=== PATIENT | female | born 1995 | race Caucasian/White ===

== ENCOUNTER 2017-12-24 17:56 | Emergency (ER) | payer OTHER, SELFPAY ==
[2017-12-24 18:12] VITALS: BP 108/78; PULSE 88; RESP 18; TEMP 36.8; O2SAT 100; BMI 53.5
--- NOTE | 2017-12-24 18:38 | HMH.EDUTC ---
[facility] [place] Disposition Clinical Impression: Sinusitis Qualifiers: Sinusitis location: other Chronicity: unspecified Qualified Code(s): J32.9 - Chronic sinusitis, unspecified Disposition: Home, Self-Care Condition on Discharge: Good Instructions: Sinusitis, Sinus Headache, DI for Sinusitis Additional Instructions: Start antibiotic. Sinus infections may take 2-3 days to notice much improvement so be sure to use conservative measures as discussed for symptoms Flonase 2 spray in each nostril daily to help with nasal congestion, sinus an ear pressure/inflammation Lots of Fluids Sleep elevated Humidifer/vaporizer Prescriptions: Brompheniramine/Pseudoephed/Dm [Bromfed DM Cough Syrup 5mL] 10 ml PO Q6HP PRN #300 ml PRN Reason: Cough Doxycycline Monohydrate 100 mg PO BID #14 cap Fluticasone Propionate [Flonase 50mcg nasal spray 16gm] 2 spr NS DAILY #1 bottle Time of Disposition: 18:57 Medical Decision Making - Medical Records Medical records reviewed: Yes: I reviewed the patient's medical records. Vital Signs: 12/24/17 18:12 Temperature 98.3 F Temperature Source Temporal Artery Scan Pulse Rate [Right] 88 Respiratory Rate 18 Blood Pressure [Right Arm] 108/78 Blood Pressure Mean [Right Arm] 88 Blood Pressure Source [Right Arm] Automatic Cuff Blood Pressure Position [Right Arm] Sitting 02 Sat by Pulse Oximetry 100 Oxygen Delivery Method Room Air - Go Inquiry Pt receiving controlled substance: No Go was queried for this patient: No [facility] [place] HPI - General Stated complaint: head congestion Mode of Arrival: Ambulatory Source of Information: Patient Limitations: No Limitations Description of Symptoms (Recalled from Triage Doc. by RN): SINUS PROBLEMS X2 WKS HEENT Symptoms (Recalled from RN notes): Yes Resp Symptoms (Recalled from RN notes): No Skin Symptoms (Recalled from RN notes): No MS Symptoms (Recalled from RN notes): No Functional Status (Recalled from RN notes): N - History of Present Illness Provider Complaint: Patient state that she has been having sinus pain and pressure for about 2 weeks now State that it got better now it has returned and hurting worse than it was State that this morning she had a fever This evening she began to feel pressure in her teeth and felt tender under her eyes States that she has been having thick greenish brown drainage from nose - Related Data Home Medications Medication Instructions Recorded Confirmed Levothyroxine Sodium 112 mcg PO DAILY 12/24/17 12/24/17 [Levothyroxine 112mcg (0.112mg) Tab] Metformin HCl [Metformin 500mg 700 mg PO DAILY 12/24/17 12/24/17 Tablet] Previous Rx's Medication Instructions Recorded Brompheniramine/Pseudoephed/Dm 10 ml PO Q6HP PRN #300 ml 12/24/17 [Bromfed DM Cough Syrup 5mL] Doxycycline Monohydrate 100 mg PO BID #14 cap 12/24/17 Fluticasone Propionate [Flonase 2 spr NS DAILY #1 bottle 12/24/17 50mcg nasal spray 16gm] Allergies Allergy/AdvReac Type Severity Reaction Status Date / Time amoxicillin [From Augmentin] Allergy Verified 12/24/17 18:16 cefaclor [From Ceclor] Allergy Verified 12/24/17 18:16 clavulanic acid Allergy Verified 12/24/17 18:16 [From Augmentin] - Worker's Comp Is this a Worker's Comp case?: No H History I have reviewed the patient's past medical history: Yes Laterality Cases: Bilateral: Tonsillectomy - Social History Alcohol Intake: never - Psychiatric History Expresses thoughts of harming self/others: None Suicide Plan Description: No Plan ROS Obtained: Yes All systems reviewed & no additional complaints - ENT Ears, Nose, Mouth, and Throat: Reports sinus pain, Reports sinus pressure - Cardiovascular Cardiovascular: Denies chest pain Physical Exam - General General appearance: alert, in no apparent distress - Expanded ENT Exam Nose exam: Present: sinus tenderness, other (Tenderness noted under eyes in maxillary sinuses) - Respiratory Respiratory exam:
--- NOTE | 2017-12-24 18:51 | ED_ITS ---
[facility] [place] Clinical Impression: Sinusitis Qualifiers: Sinusitis location: other Chronicity: unspecified Qualified Code(s): J32.9 - Chronic sinusitis, unspecified Disposition: Home, Self-Care Condition on Discharge: Good Instructions: Sinusitis, Sinus Headache, DI for Sinusitis Additional Instructions: Start antibiotic. Sinus infections may take 2-3 days to notice much improvement so be sure to use conservative measures as discussed for symptoms Flonase 2 spray in each nostril daily to help with nasal congestion, sinus an ear pressure/inflammation Lots of Fluids Sleep elevated Humidifer/vaporizer Prescriptions: Brompheniramine/Pseudoephed/Dm [Bromfed DM Cough Syrup 5mL] 10 ml PO Q6HP PRN # 300 ml PRN Reason: Cough Doxycycline Monohydrate 100 mg PO BID #14 cap Fluticasone Propionate [Flonase 50mcg nasal spray 16gm] 2 spr NS DAILY #1 bottle Time of Disposition: 18:57 Medical Decision Making - Medical Records Medical records reviewed: Yes: I reviewed the patient's medical records. Vital Signs: 12/24/17 18:12 Temperature 98.3 F Temperature Source Temporal Artery Scan Pulse Rate [Right] 88 Respiratory Rate 18 Blood Pressure [Right Arm] 108/78 Blood Pressure Mean [Right Arm] 88 Blood Pressure Source [Right Arm] Automatic Cuff Blood Pressure Position [Right Arm] Sitting 02 Sat by Pulse Oximetry 100 Oxygen Delivery Method Room Air - Go Inquiry Pt receiving controlled substance: No Go was queried for this patient: No [facility] [place] - General Stated complaint: head congestion Mode of Arrival: Ambulatory Source of Information: Patient Limitations: No Limitations Description of Symptoms (Recalled from Triage Doc. by RN): SINUS PROBLEMS X2 WKS HEENT Symptoms (Recalled from RN notes): Yes Resp Symptoms (Recalled from RN notes): No Skin Symptoms (Recalled from RN notes): No MS Symptoms (Recalled from RN notes): No Functional Status (Recalled from RN notes): N - History of Present Illness Provider Complaint: Patient state that she has been having sinus pain and pressure for about 2 weeks now State that it got better now it has returned and hurting worse than it was State that this morning she had a fever This evening she began to feel pressure in her teeth and felt tender under her eyes States that she has been having thick greenish brown drainage from nose - Related Data Home Medications Medication Instructions Recorded Confirmed Levothyroxine Sodium 112 mcg PO DAILY 12/24/17 12/24/17 [Levothyroxine 112mcg (0.112mg) Tab] Metformin HCl [Metformin 500mg 700 mg PO DAILY 12/24/17 12/24/17 Tablet] Previous Rx's Medication Instructions Recorded Brompheniramine/Pseudoephed/Dm 10 ml PO Q6HP PRN #300 ml 12/24/17 [Bromfed DM Cough Syrup 5mL] Doxycycline Monohydrate 100 mg PO BID #14 cap 12/24/17 Fluticasone Propionate [Flonase 2 spr NS DAILY #1 bottle 12/24/17 50mcg nasal spray 16gm] Allergies Allergy/AdvReac Type Severity Reaction Status Date / Time amoxicillin [From Augmentin] Allergy Verified 12/24/17 18:16 cefaclor [From Ceclor] Allergy Verified 12/24/17 18:16 clavulanic acid Allergy Verified 12/24/17 18:16 [From Augmentin] - Worker's Comp Is this a Worker's Comp case?: No [facility] History I have reviewed the
[2017-12-24 18:59] VITALS: BP 108/79; PULSE 88; RESP 18; TEMP 36.8
== END 2017-12-24 18:59 | disposition home or self-care (01) ==
PROVIDERS: Emergency Provider Nurse Practitioner
DX: J32.9 Chronic sinusitis, unspecified (principal); E03.9 Hypothyroidism, unspecified; Z79.84 Long term (current) use of oral hypoglycemic drugs; Z88.1 Allergy status to other antibiotic agents
CPT/HCPCS: 99202

== ENCOUNTER → 2018-02-02 11:03 | Outpatient (REF) | payer OTHER, SELFPAY ==
[2018-02-02 18:18] LABS: Basophils % 0.6 % (0.1-2.0); Eosinophils # 0.2 K/mm3 (0.0-0.4); Eosinophils % 2.3 % (0.1-12.0); Hematocrit 42.9 % (37.0-47.0); Hemoglobin 13.6 g/dL (12.2-16.2); Lymphocytes # 1.5 K/mm3 (0.7-4.5); Lymphocytes % 22.1 K/mm3 (10-50); Mean Corpuscular HGB Conc 31.6 g/dL (31.8-35.4); Mean Corpuscular Volume 85.4 fl (81-99); Mean Platelet Volume 8.2 fl (7.4-10.4); Monocytes # 0.3 K/mm3 (0.1-1.0); Neutrophils # 4.9 K/mm3 (1.8-7.8); Neutrophils % 70.9 % (37.0-80.0); Platelet Count 390 K/mm3 (142-424); Red Blood Count 5.02 M/mm3 (4.20-5.40); Red Cell Distribution Width 13.7 % (11.5-17.5); White Blood Count 6.8 K/mm3 (4.8-10.8)
[2018-02-02 18:46] LABS: Alanine Aminotransferase 31 U/L (12-78); Albumin Level 3.7 gm/dL (3.4-5.0); Alkaline Phosphatase 83 U/L (46-116); Anion Gap 14.5 mEq/L (5-15); Aspartate Amino Transferase 19 U/L (15-37); Bilirubin,Total 0.2 mg/dL (0.2-1.0); Blood Urea Nitrogen 16 mg/dL (7-18); Calcium 9.5 mg/dL (8.5-10.1); Carbon Dioxide 28 mmol/L (21.0-32.0); Chloride 104 mmol/L (98-107); Chol/HDL Ratio 4.1 (1-3.5); Cholesterol 186 mg/dL (140-200); Estimated Glomerular Filt Rate 103 ml/min (>60); GFR (African American) 124 ML/MIN (>60); Globulin 3.7 gm/dl (1.3-3.2); Glucose 115 mg/dL (74-106); HDL Cholesterol 45 mg/dL (29-89); LDL Cholesterol 109 mg/dL (0-130); Magnesium 1.7 mg/dL (1.4-2.2); Potassium 4.5 mmoL/L (3.5-5.1); Sodium 142 mmol/L (136-145); T4 (Thyroxine) 9.2 ug/dl (4.7-13.3); Thyroid Stimulating Hormone 0.37 uIU/ml (0.358-3.740); Total Protein,Serum 7.4 gm/dL (6.4-8.2); Triglycerides 161 mg/dL (30-200); VLDL Cholesterol 32 mg/dL (0-40)
[2018-02-04 15:55] LABS: Vitamin D 25 Hydroxy 30.9 ng/mL (30.0-100.0)
== END ==
LOC: LAB 11:03
PROVIDERS: Visit Provider Physician Assistant
DX: E03.9 Hypothyroidism, unspecified (principal); E61.2 Magnesium deficiency; E55.9 Vitamin D deficiency, unspecified
CPT/HCPCS: 80053; 80061; 82652; 83735; 84436; 84443; 85025

== ENCOUNTER → 2018-09-15 10:27 | Outpatient (CLI) | payer OTHER, SELFPAY | PROVIDERS: PCP Physician Assistant; Visit Provider Physician Assistant | DX: G47.30 Sleep apnea, unspecified (principal) | CPT/HCPCS: 95806 ==

== ENCOUNTER → 2018-10-21 20:12 | Outpatient (CLI) | payer OTHER, SELFPAY | PROVIDERS: PCP Physician Assistant; Visit Provider Physician Assistant | DX: G47.33 Obstructive sleep apnea (adult) (pediatric) (principal) | CPT/HCPCS: 95810 ==

== ENCOUNTER → 2018-11-03 14:40 | Outpatient (CLI) | payer OTHER, SELFPAY ==
[2018-11-03 14:59] LABS: Basophils % 0.5 % (0.1-2.0); Eosinophils # 0.2 K/mm3 (0.0-0.4); Eosinophils % 2.1 % (0.1-12.0); Hematocrit 41.5 % (37.0-47.0); Hemoglobin 13.1 g/dL (12.2-16.2); Lymphocytes # 1.9 K/mm3 (0.7-4.5); Mean Corpuscular HGB Conc 31.6 g/dL (31.8-35.4); Mean Corpuscular Hemoglobin 25.6 pg (27.0-31.2); Mean Corpuscular Volume 80.9 fl (81-99); Mean Platelet Volume 7.7 fl (7.4-10.4); Monocytes # 0.3 K/mm3 (0.1-1.0); Neutrophils # 5.5 K/mm3 (1.8-7.8); Neutrophils % 69.5 % (37.0-80.0); Platelet Count 424 K/mm3 (142-424); Red Blood Count 5.13 M/mm3 (4.20-5.40); Red Cell Distribution Width 15.4 % (11.5-17.5); White Blood Count 7.9 K/mm3 (4.8-10.8)
[2018-11-03 15:12] LABS: Alanine Aminotransferase 38 U/L (12-78); Albumin/Globulin Ratio 1.1 (1.1-1.8); Alkaline Phosphatase 85 U/L (46-116); Anion Gap 13.3 mEq/L (5-15); Aspartate Amino Transferase 22 U/L (15-37); Bilirubin,Total 0.4 mg/dL (0.2-1.0); Blood Urea Nitrogen 15 mg/dL (7-18); Calcium 9.3 mg/dL (8.5-10.1); Carbon Dioxide 27 mmol/L (21.0-32.0); Chloride 103 mmol/L (98-107); Chol/HDL Ratio 3.7 (1-3.5); Cholesterol 172 mg/dL (140-200); Creatinine,Serum 0.67 mg/dL (0.55-1.02); Estimated Glomerular Filt Rate 107 ml/min (>60); GFR (African American) 130 ML/MIN (>60); Globulin 3.7 gm/dl (1.3-3.2); Glucose 92 mg/dL (74-106); HDL Cholesterol 46 mg/dL (29-89); LDL Cholesterol 104 mg/dL (0-130); Potassium 4.3 mmoL/L (3.5-5.1); Sodium 139 mmol/L (136-145); T4 (Thyroxine) 10.6 ug/dl (4.7-13.3); Thyroid Stimulating Hormone 0.19 uIU/ml (0.358-3.740); Total Protein,Serum 7.7 gm/dL (6.4-8.2); Triglycerides 112 mg/dL (30-200); VLDL Cholesterol 22 mg/dL (0-40)
[2018-11-05 18:04] LABS: Vitamin B12 727 pg/mL (232-1245); Vitamin D 25 Hydroxy 24.7 ng/mL (30.0-100.0)
[2018-11-05 18:05] LABS: Folate 15.2 ng/mL (>3.0)
== END ==
LOC: LAB.DROPOF 14:41 → LAB 18:42
PROVIDERS: Visit Provider Physician Assistant
DX: E07.9 Disorder of thyroid, unspecified (principal)
CPT/HCPCS: 80053; 80061; 82607; 82652; 82746; 84436; 84443; 85025

== ENCOUNTER → 2018-11-10 09:16 | Outpatient (CLI) | payer OTHER, SELFPAY ==
--- NOTE | 2018-11-10 09:18 | US_ITS ---
US thyroid HISTORY: ITS.REASON: goiter ORDERING PHYSICIAN: MARCELLE Curtis PATIENT AGE: 23 years Comparison: None FINDINGS: There is been a prior thyroidectomy on the left. The isthmus is unremarkable at 3 mm. The right lobe is 3.7 x 1.2 x 1.3 cm. A vague 3 mm area of decreased echogenicity is noted in the upper pole nonspecific. IMPRESSION: Prior left thyroidectomy Possible 3 mm nodule in the upper pole. Consider 6 month follow-up to confirm stability
--- NOTE | 2018-11-10 09:18 | CT_ITS ---
CT sinus wo con CLINICAL INDICATION: Chronic sinusitis ITS.REASON: recurrent sinusitis ORDERING PHYSICIAN: MARCELLE Curtis PATIENT AGE: 23 years COMPARISON: None TECHNIQUE:Axial images obtained with sagittal and coronal reformats. All CT scans at the facility use one or more dose reduction, viz: automated exposure control, ma/kV adjustment per patient size (including targeted exams where dose is matched to indication, i.e. head), or iterative reconstruction technique. FINDINGS: Bones: Unremarkable. No fracture, lytic, or blastic changes evident Extracranial soft tissues: Unremarkable Sinuses: Unremarkable. No air-fluid levels or significant mucosal thickening Orbits: Unremarkable Other: Incidental note is made of pneumatization of the petrous bones on both sides right more extensive than left. The mastoid air cells are well aerated with no obvious mastoid effusion. There is mild leftward nasal septal deviation. The ostiomeatal units are patent. TMJs have an unremarkable appearance IMPRESSION: 1. No evidence of sinusitis. 2. Mild leftward nasal septal deviation
== END ==
PROVIDERS: PCP Physician Assistant; Visit Provider Physician Assistant
DX: J32.9 Chronic sinusitis, unspecified (principal); E07.9 Disorder of thyroid, unspecified
CPT/HCPCS: 70486; 76536